=== PATIENT | female | born 2000 | race Caucasian/White ===

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

== ENCOUNTER 2025-05-26 15:16 | Emergency (ER) | payer OTHER, SELFPAY ==
--- NOTE | ~2025-05-26 | CT_ITS ---
EXAMINATION: CT BRAIN W/O DATE: 05/26/2025 17:15 INDICATION: Headache. Visual changes. TECHNIQUE: Computed tomography (CT) of the head was performed without intravenous contrast. The dose-length product was 529.67 mGy-cm. Automated exposure control and iterative reconstruction technique were employed. COMPARISON: No prior studies for comparison. FINDINGS: Normal brain parenchymal volume for age. Normal saleh-white differentiation. No acute intracranial hemorrhage, infarction, mass or mass effect. No ventriculomegaly or midline shift. Midline sagittal images demonstrate a normal corpus callosum, craniovertebral junction and sella turcica. Basilar cisterns are patent. Paranasal sinuses and mastoids are pneumatized. No depressed skull fractures. IMPRESSION: 1. No acute intracranial abnormality. Reviewed, dictated and finalized at location O. TEACHER
[2025-05-26 15:21] VITALS: BP 118/62; PULSE 62; RESP 18; TEMP 36.3; O2SAT 99
--- NOTE | 2025-05-26 15:25 | PC.NURSE ---
EDP Dr. García made aware of pt arrival, sx, & onset. No new orders at this time.
--- OUTSIDE RECORDS SUMMARY | 2025-05-26 15:52 | XMS_ITS | Clinical Summary ---
Author Organization [address] Address [address] [place] [id number] Care Team Providers Care Mycology Teacher Name Role Phone Calista Tatum DO Primary Care Provider Allergies No known active allergies Medications segesterone ac-ethin estradioL ([place]) 0.15-0.013 mg/24 hour ringIndications :Menstrual suppression Insert 1 Ring into the vagina continuously 1 each 5 09/20/19 26 Active Active Problems Problem Noted Date Diagnosed Date Excessive and frequent menstruation with regular cycle 09/19/2024 Overview (09/19/2024): Patient presents with longstanding history of abnormal uterine bleeding and dysmenorrhea with regular menses. Recent ultrasound imaging notable for a normal-sized uterus and ovaries with endometrial stripe of 1.4-1.9 cm. Discussed causes of abnormal uterine bleeding, including structural, hormonal, iatrogenic, and endometrial issues, with patient's current bleeding most likely due to structural causes given increased volume of bleeding over the past 2 years and intermenstrual bleeding. Discussed management with menstrual suppression with various modalities such as pills, injectables, implants, and LARCs. Following discussion of options and patient's desire to conceive in the short term, opted for continuous use of vaginal ring. Given periods are regular with varying onset timing, we will send hormonal workup for contributing factors. Endometrial stripe on recent ultrasound likely due to proliferative endometrium, but could be a sign of intracavitary things like polyps/fibroids, so we will perform SIS to evaluate. Additionally we will send CBC and iron studies given prolonged heavy bleeding to assess for degree of anemia. Of note, anticipate need for fertility evaluation following management of AUB. Medical History Medical History Date Comments Asthma Heart murmur Social History Tobacco Use Types Packs/Day Years Used Date Smoking Tobacco: Never Smokeless Tobacco: Never Tobacco Cessation:Counseling Given: No Hunger Vital Sign Answer Date Recorded Within the past 12 months, y ou worried that your food would run out before you got the money to buy more. Never true 09/20/19 25 Within the past 12 months, t he food you bought just didn't last and you didn't have money to get more. 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 Gender Identity Not on file Sexual Orientation Not on file Last Filed Vital Signs Vital Sign Reading Time Taken Comments Blood Pressure 108/60 09/19/2024 9:03 AM CDT Pulse 64 09/19/2024 9:03 AM CDT Temperature 37.1 C (98.7 F) 03/20/2017 7:15 PM CDT Respiratory Rate 18 09/19/2024 9:03 AM CDT Oxygen Saturation 97% 09/19/2024 9:03 AM CDT Inhaled Oxygen Concentration - - Weight 100.7 kg (222 lb) 09/19/2024 9:03 AM CDT Height 160 cm (5' 3) 09/19/2024 9:03 AM CDT Body Mass Index 39.33 09/19/2024 9:03 AM CDT Plan of Treatment Health Maintenance Due Date Last Done Comments Cervical Cancer Screening 2002 Depression Screening 2002 Hepatitis C Screening 2002 Meningococcal B Vaccine (1 of 2 - Standard) 2018 Regular Well Visit/Exam 18-64 2020 DTaP/Tdap/Td Vaccine (7 - Td or Tdap) 03/25/2024 03/25/2014, 01/15/2008, 10/30/2003, Additional history exists Covid-19 Vaccine ( season) 2025 12/02/2020, 11/04/2020 Influenza Vaccine (#1) 2025 03/21/2016, 2013 Hepatitis B Screening Completed 2002 , 2002, 2002, Additional history exists Pneumococcal vaccine <65 Aged Out 003, 2002, 2002 No longer eligible based on patient's age to complete this topic Varicella Vaccines Completed 01/15/2008, 07/15/2003 HPV Vaccines Completed 03/21/2016, 03/25/2014 Insurance Member Subscriber Plan / Payer (Ef fective 2023-Present) Name:Jes Villagran Relation to Subscriber:Self Name:AldairUzma nunesmolina Mccall Payer ID:[id number] (NAIC) Group ID:Not on file Type:MEDICAID RISK OTHER Address: ATTN: CLAIMS DEPT [address] [facility] [place] [phone] Care Teams Mycology Teacher Relationship Specialty Start Date End Date Calista Tatum DO PCP - General Family Medicine 01/18/24
[2025-05-26 16:25] VITALS: BP 123/68; PULSE 70; RESP 20; O2SAT 100
[2025-05-26] MEDS: LACTATED RINGERS 1,000 ML 999 ML IV CONT (16:40)
[2025-05-26] MEDS: METOCLOPRAMIDE HCL INJ 10 MG/2 ML VIAL IV PUSH (16:40)
--- NOTE | 2025-05-26 17:00 | ED_ITS ---
HPI - Headache General Chief Complaint: Headache Stated Complaint: headache Time Seen by Provider: 05/26/25 15:33 Source: patient Mode of arrival: ambulatory Limitations: no limitations History of Present Illness HPI Narrative: This is a 25 year old female that presents to the ER for headache. She is currently 9 weeks . Reports earlier today she had an episode of blurred vision photophobia, with headache following. Reports some nausea. History of headaches, but not usually quite this bad. She is currently 9 weeks . Related Data Home Medications ?Medication ?Instructions ?Recorded ?Confirmed ?Last Taken ?Type ergocalciferol (vitamin D2) 1,250 PO 05/13/25 05/13/25 Unknown History mcg (50,000 unit) capsule vits no.126-ferrous fum tablet PO 05/13/25 Unknown History 28 mg iron-folic acid 800 mcg tablet (Classic ) sertraline 100 mg tablet 100 mg PO 05/13/25 05/13/25 Unknown History Allergies Allergy/AdvReac Type Severity Reaction Status Date / Time azithromycin Allergy Mild Rash Verified 05/26/25 15:26 Review of Systems 2 Review of Systems: All systems reviewed & are unremarkable except as noted in HPI and below PMFSH Past Medical History Medical History (Updated 05/26/25 @ 18:56 by Elizabeth Posadas PA-C) Anxiety Anemia Social History Social History (Updated 05/13/25 @ 08:22 by Laury Kunz [facility]) Smoking status: Current every day smoker Lack of Transportation: YES Concerned About Future Housing: No Difficulty Paying Gas/Electric Bills: No Difficulty Paying for Meds: No Currently Unemployed: No Sexual Orientation (if Verbalized by the Patient): Straight or Heterosexual Exam 2 Narrative: GENERAL: Well-appearing, well-nourished, and in no acute distress. HEAD: Normocephalic, atraumatic. EYES: PERRLA and EOMI. ENT: Nares clear, no rhinorrhea or epistaxis. Mucous membranes moist. Oropharynx without tonsillar hypertrophy exudate or other lesions. Bilateral TMs pearly saleh non-bulging NECK: Supple. No adenopathy or masses. CHEST: Clear to auscultation. No respiratory distress. No wheezes rales or rhonchi HEART: Regular rate and rhythm. No murmur heard. Normal peripheral pulses. EXTREMITIES: Normal range of motion. No edema. SKIN: Warm, dry, no rash. NEURO: No focal deficits. Alert and oriented x3. Cranial nerves 2-12 grossly intact PSYCH: Normal mood and affect Course Vital Signs Vital signs: Vital Signs Temperature 97.4 F L 05/26/25 15:21 Pulse Rate 62 05/26/25 15:21 Respiratory Rate 18 05/26/25 15:21 Blood Pressure 118/62 05/26/25 15:21 Pulse Oximetry 99 05/26/25 15:21 Oxygen Delivery Room Air 05/26/25 15:21 Temperature 97.4 F L 05/26/25 15:21 Pulse Rate 80 05/26/25 18:47 Respiratory Rate 20 05/26/25 18:47 Blood Pressure 114/64 05/26/25 18:47 Pulse Oximetry 100 05/26/25 18:47 Oxygen Delivery Room Air 05/26/25 15:21 [facility] Narrative Medical decision making narrative: Patient presents to the emergency department for a headache today with episode of blurred vision. Her vitals are stable. She is afebrile and nontoxic appearing. She is neurologically intact. CBC and metabolic panel without concerning findings. CT brain is normal. Relief after migraine cocktail. Instructed to have continued follow-up with her OB Differential Diagnosis Differential Diagnosis: Headache, migraine, tension headache Lab Data [facility] Lab Attestation statement: I personally reviewed the patient's lab results. 05/26/25 15:32 05/26/25 15:32 Labs: Lab Results 05/26/25 05/26/25 05/26/25 Range/Units 15:26 15:32 15:32 WBC 9.4 (4.5-10.0) K/mm3 RBC 3.66 L (4.2-5.4) M/mm3 Hgb 10.5 L (12.0-15.0) g/dL Hct 32.3 L (37.0-47.0) % MCV 88.3 (80-100) fl MCH 28.7 (26-34) pg MCHC 32.5 (32-36) g/dl RDW 14.7 H (11.5-14.5) % Plt Count 300 (150-375) k/mm3 MPV 11.0 H (7.4-10.4) fl Immature Gran % (Auto) 0.3 (0-0.5) % Neut % (Auto) 71.8 (45.5-73.1) % Lymph % (Auto) 19.4 (18.3-44.2) % [place] % (Auto) 5.2 (2.6-8.5) % Eos % (Auto) 2.9 (0-4.4) % Baso % (Auto) 0.4 (0.2-1.2) % Lymph # (Auto) 1.82 (0.9-3.2) K/mm3 [place] # (Auto) 0.5 (0.1-0.6) K/mm3 Eos # (Auto) 0.3 (0-0.3) K/mm3 Baso # (Auto) 0.0 (0.0-0.1) K/mm3 Abs Immat Gran (auto) 0.03 (0.00-0.031) K/mm3 Absolute Neuts (auto) 6.7 (1.3-6.7) K/mm3 Absolute Nucleated RBC 0.000 (0.0-0.012) K/mm3 Nucleated RBC % 0.0 (0.0-0.2) % Sodium 137 Cancelled (137-145) mmol/L Potassium 3.9 (3.4-5.0) mmol/L Chloride (98-107) mmol/L Carbon Dioxide (22-30) mmol/L Anion Gap (4-12) mmol/L BUN (7-17) mg/dL Creatinine (0.7-1.0) mg/dL Estim Creat Clear Calc ml/min Estimated GFR (59 - ) Glucose (65-110) mg/dL POC Capillary Glucose 96 (65-105) mg/dl Calcium (8.4-10.2) mg/dL Total Bilirubin (0.2-1.3) mg/dL AST (14-36) U/L ALT (6-35) U/L Alkaline Phosphatase (38-126) U/L Total Protein (6.3-8.2) g/dL Albumin (3.5-5.1) g/dL Beta HCG, Quant mIU/ML 05/26/25 05/26/25 05/26/25 Range/Units 15:32 15:32 15:32 WBC (4.5-10.0) K/mm3 RBC (4.2-5.4) M/mm3 Hgb (12.0-15.0) g/dL Hct (37.0-47.0) % MCV (80-100) fl MCH (26-34) pg MCHC (32-36) g/dl RDW (11.5-14.5) % Plt Count (150-375) k/mm3 MPV (7.4-10.4) fl Immature Gran % (Auto) (0-0.5) % Neut % (Auto) (45.5-73.1) % Lymph % (Auto) (18.3-44.2) % [place] % (Auto) (2.6-8.5) % Eos % (Auto) (0-4.4) % Baso % (Auto) (0.2-1.2) % Lymph # (Auto) (0.9-3.2) K/mm3 [place] # (Auto) (0.1-0.6) K/mm3 Eos # (Auto) (0-0.3) K/mm3 Baso # (Auto) (0.0-0.1) K/mm3 Abs Immat Gran (auto) (0.00-0.031) K/mm3 Absolute Neuts (auto) (1.3-6.7) K/mm3 Absolute Nucleated RBC (0.0-0.012) K/mm3 Nucleated RBC % (0.0-0.2) % Sodium (137-145) mmol/L Potassium Cancelled (3.4-5.0) mmol/L Chloride 107 Cancelled (98-107) mmol/L Carbon Dioxide 21 L Cancelled (22-30) mmol/L Anion Gap 9 (4-12) mmol/L BUN (7-17) mg/dL Creatinine (0.7-1.0) mg/dL Estim Creat Clear Calc ml/min Estimated GFR (59 - ) Glucose (65-110) mg/dL POC Capillary Glucose (65-105) mg/dl Calcium (8.4-10.2) mg/dL Total Bilirubin (0.2-1.3) mg/dL AST (14-36) U/L ALT (6-35) U/L Alkaline Phosphatase (38-126) U/L Total Protein (6.3-8.2) g/dL Albumin (3.5-5.1) g/dL Beta HCG, Quant mIU/ML 05/26/25 05/26/25 05/26/25 Range/Units 15:32 15:32 15:32 WBC (4.5-10.0) K/mm3 RBC (4.2-5.4) M/mm3 Hgb (12.0-15.0) g/dL Hct (37.0-47.0) % MCV (80-100) fl MCH (26-34) pg MCHC (32-36) g/dl RDW (11.5-14.5) % Plt Count (150-375) k/mm3 MPV (7.4-10.4) fl Immature Gran % (Auto) (0-0.5) % Neut % (Auto) (45.5-73.1) % Lymph % (Auto) (18.3-44.2) % [place] % (Auto) (2.6-8.5) % Eos % (Auto) (0-4.4) % Baso % (Auto) (0.2-1.2) % Lymph # (Auto) (0.9-3.2) K/mm3 [place] # (Auto) (0.1-0.6) K/mm3 Eos # (Auto) (0-0.3) K/mm3 Baso # (Auto) (0.0-0.1) K/mm3 Abs Immat Gran (auto) (0.00-0.031) K/mm3 Absolute Neuts (auto) (1.3-6.7) K/mm3 Absolute Nucleated RBC (0.0-0.012) K/mm3 Nucleated RBC % (0.0-0.2) % Sodium (137-145) mmol/L Potassium (3.4-5.0) mmol/L Chloride (98-107) mmol/L Carbon Dioxide (22-30) mmol/L Anion Gap Cancelled (4-12) mmol/L BUN 7 Cancelled (7-17) mg/dL Creatinine 0.53 L Cancelled (0.7-1.0) mg/dL Estim Creat Clear Calc 147 ml/min Estimated GFR (59 - ) Glucose (65-110) mg/dL POC Capillary Glucose (65-105) mg/dl Calcium (8.4-10.2) mg/dL Total Bilirubin (0.2-1.3) mg/dL AST (14-36) U/L ALT (6-35) U/L Alkaline Phosphatase (38-126) U/L Total Protein (6.3-8.2) g/dL Albumin (3.5-5.1) g/dL Beta HCG, Quant mIU/ML 05/26/25 05/26/25 05/26/25 Range/Units 15:32 15:32 15:32 WBC (4.5-10.0) K/mm3 RBC (4.2-5.4) M/mm3 Hgb (12.0-15.0) g/dL Hct (37.0-47.0) % MCV (80-100) fl MCH (26-34) pg MCHC (32-36) g/dl RDW (11.5-14.5) % Plt Count (150-375) k/mm3 MPV (7.4-10.4) fl Immature Gran % (Auto) (0-0.5) % Neut % (Auto) (45.5-73.1) % Lymph % (Auto) (18.3-44.2) % [place] % (Auto) (2.6-8.5) % Eos % (Auto) (0-4.4) % Baso % (Auto) (0.2-1.2) % Lymph # (Auto) (0.9-3.2) K/mm3 [place] # (Auto) (0.1-0.6) K/mm3 Eos # (Auto) (0-0.3) K/mm3 Baso # (Auto) (0.0-0.1) K/mm3 Abs Immat Gran (auto) (0.00-0.031) K/mm3 Absolute Neuts (auto) (1.3-6.7) K/mm3 Absolute Nucleated RBC (0.0-0.012) K/mm3 Nucleated RBC % (0.0-0.2) % Sodium (137-145) mmol/L Potassium (3.4-5.0) mmol/L Chloride (98-107) mmol/L Carbon Dioxide (22-30) mmol/L Anion Gap (4-12) mmol/L BUN (7-17) mg/dL Creatinine (0.7-1.0) mg/dL Estim Creat Clear Calc Cancelled ml/min Estimated GFR > 60 Cancelled (59 - ) Glucose 86 Cancelled (65-110) mg/dL POC Capillary Glucose (65-105) mg/dl Calcium 9.6 (8.4-10.2) mg/dL Total Bilirubin (0.2-1.3) mg/dL AST (14-36) U/L ALT (6-35) U/L Alkaline Phosphatase (38-126) U/L Total Protein (6.3-8.2) g/dL Albumin (3.5-5.1) g/dL Beta HCG, Quant mIU/ML 05/26/25 05/26/25 05/26/25 Range/Units 15:32 15:32 15:32 WBC (4.5-10.0) K/mm3 RBC (4.2-5.4) M/mm3 Hgb (12.0-15.0) g/dL Hct (37.0-47.0) % MCV (80-100) fl MCH (26-34) pg MCHC (32-36) g/dl RDW (11.5-14.5) % Plt Count (150-375) k/mm3 MPV (7.4-10.4) fl Immature Gran % (Auto) (0-0.5) % Neut % (Auto) (45.5-73.1) % Lymph % (Auto) (18.3-44.2) % [place] % (Auto) (2.6-8.5) % Eos % (Auto) (0-4.4) % Baso % (Auto) (0.2-1.2) % Lymph # (Auto) (0.9-3.2) K/mm3 [place] # (Auto) (0.1-0.6) K/mm3 Eos # (Auto) (0-0.3) K/mm3 Baso # (Auto) (0.0-0.1) K/mm3 Abs Immat Gran (auto) (0.00-0.031) K/mm3 Absolute Neuts (auto) (1.3-6.7) K/mm3 Absolute Nucleated RBC (0.0-0.012) K/mm3 Nucleated RBC % (0.0-0.2) % Sodium (137-145) mmol/L Potassium (3.4-5.0) mmol/L Chloride (98-107) mmol/L Carbon Dioxide (22-30) mmol/L Anion Gap (4-12) mmol/L BUN (7-17) mg/dL Creatinine (0.7-1.0) mg/dL Estim Creat Clear Calc ml/min Estimated GFR (59 - ) Glucose (65-110) mg/dL POC Capillary Glucose (65-105) mg/dl Calcium Cancelled (8.4-10.2) mg/dL Total Bilirubin 0.4 Cancelled (0.2-1.3) mg/dL AST 21 Cancelled (14-36) U/L ALT 11 (6-35) U/L Alkaline Phosphatase (38-126) U/L Total Protein (6.3-8.2) g/dL Albumin (3.5-5.1) g/dL Beta HCG, Quant mIU/ML 05/26/25 05/26/25 05/26/25 Range/Units 15:32 15:32 15:32 WBC (4.5-10.0) K/mm3 RBC (4.2-5.4) M/mm3 Hgb (12.0-15.0) g/dL Hct (37.0-47.0) % MCV (80-100) fl MCH (26-34) pg MCHC (32-36) g/dl RDW (11.5-14.5) % Plt Count (150-375) k/mm3 MPV (7.4-10.4) fl Immature Gran % (Auto) (0-0.5) % Neut % (Auto) (45.5-73.1) % Lymph % (Auto) (18.3-44.2) % [place] % (Auto) (2.6-8.5) % Eos % (Auto) (0-4.4) % Baso % (Auto) (0.2-1.2) % Lymph # (Auto) (0.9-3.2) K/mm3 [place] # (Auto) (0.1-0.6) K/mm3 Eos # (Auto) (0-0.3) K/mm3 Baso # (Auto) (0.0-0.1) K/mm3 Abs Immat Gran (auto) (0.00-0.031) K/mm3 Absolute Neuts (auto) (1.3-6.7) K/mm3 Absolute Nucleated RBC (0.0-0.012) K/mm3 Nucleated RBC % (0.0-0.2) % Sodium (137-145) mmol/L Potassium (3.4-5.0) mmol/L Chloride (98-107) mmol/L Carbon Dioxide (22-30) mmol/L Anion Gap (4-12) mmol/L BUN (7-17) mg/dL Creatinine (0.7-1.0) mg/dL Estim Creat Clear Calc ml/min Estimated GFR (59 - ) Glucose (65-110) mg/dL POC Capillary Glucose (65-105) mg/dl Calcium (8.4-10.2) mg/dL Total Bilirubin (0.2-1.3) mg/dL AST (14-36) U/L ALT Cancelled (6-35) U/L Alkaline Phosphatase 65 Cancelled (38-126) U/L Total Protein 7.4 Cancelled (6.3-8.2) g/dL Albumin 4.1 (3.5-5.1) g/dL Beta HCG, Quant mIU/ML 05/26/ Range/Units 15:32 WBC (4.5-10.0) K/mm3 RBC (4.2-5.4) M/mm3 Hgb (12.0-15.0) g/dL Hct (37.0-47.0) % MCV (80-100) fl MCH (26-34) pg MCHC (32-36) g/dl RDW (11.5-14.5) % Plt Count (150-375) k/mm3 MPV (7.4-10.4) fl Immature Gran % (Auto) (0-0.5) % Neut % (Auto) (45.5-73.1) % Lymph % (Auto) (18.3-44.2) % [place] % (Auto) (2.6-8.5) % Eos % (Auto) (0-4.4) % Baso % (Auto) (0.2-1.2) % Lymph # (Auto) (0.9-3.2) K/mm3 [place] # (Auto) (0.1-0.6) K/mm3 Eos # (Auto) (0-0.3) K/mm3 Baso # (Auto) (0.0-0.1) K/mm3 Abs Immat Gran (auto) (0.00-0.031) K/mm3 Absolute Neuts (auto) (1.3-6.7) K/mm3 Absolute Nucleated RBC (0.0-0.012) K/mm3 Nucleated RBC % (0.0-0.2) % Sodium (137-145) mmol/L Potassium (3.4-5.0) mmol/L Chloride (98-107) mmol/L Carbon Dioxide (22-30) mmol/L Anion Gap (4-12) mmol/L BUN (7-17) mg/dL Creatinine (0.7-1.0) mg/dL Estim Creat Clear Calc ml/min Estimated GFR (59 - ) Glucose (65-110) mg/dL POC Capillary Glucose (65-105) mg/dl Calcium (8.4-10.2) mg/dL Total Bilirubin (0.2-1.3) mg/dL AST (14-36) U/L ALT (6-35) U/L Alkaline Phosphatase (38-126) U/L Total Protein (6.3-8.2) g/dL Albumin Cancelled (3.5-5.1) g/dL Beta HCG, Quant 571198.00 mIU/ML Imaging Data Radiologist's impression: ITS Impressions Head CT 05/26/25 17:24 IMPRESSION: 1. No acute intracranial abnormality. Critical Care Time Critical Care Time Critical Care Time: No Discharge Plan Discharge Clinical Impression: Headache Qualifiers: Headache type: unspecified Headache chronicity pattern: acute headache I ntractability: not intractable Qualified Code(s): R51.9 - Headache, unspecified Patient Disposition: Home Condition: Improved Instructions: Acute Headache (ED) Additional Instructions: Return to the ER if you experience fever, chest pain, shortness of breath, abdominal pain with nausea and vomiting, you are unable to keep down liquids or solids, pelvic cramping, vaginal bleeding, weakness, numbness, or any other symptoms that are concerning to you Remain well hydrated. Tylenol as needed for pain Follow up with your OB Patient Language: Nicar[place] Prescriptions: No Action sertraline 100 mg tablet 100 mg PO ergocalciferol (vitamin D2) 1,250 mcg (50,000 unit) capsule PO Classic 28 mg iron- 800 mcg tablet PO metoclopramide HCl 10 mg tablet 10 mg PO Q6H PRN (Reason: nausea and vomiting) Qty: 30 3RF Follow-up/Referrals: PHYSICIAN NOT ON STAFF,NONSTAFF [Primary Care Provider]
[2025-05-26 17:49] LABS: Alanine Aminotransferase 11 U/L (6-35); Albumin Level 4.1 g/dL (3.5-5.1); Alkaline Phosphatase 65 U/L (38-126); Anion Gap 9 mmol/L (4-12); Aspartate Amino Transferase 21 U/L (14-36); Bilirubin,Total 0.4 mg/dL (0.2-1.3); Blood Urea Nitrogen 7 mg/dL (7-17); Calcium 9.6 mg/dL (8.4-10.2); Carbon Dioxide 21 mmol/L (22-30); Chloride 107 mmol/L (98-107); Estimated CRCL calculation 147 ml/min; Estimated Glomerular Filt Rate > 60; Glucose 86 mg/dL (65-110); Potassium 3.9 mmol/L (3.4-5.0); Sodium 137 mmol/L (137-145); Total Protein 7.4 g/dL (6.3-8.2)
[2025-05-26 17:50] LABS: Hematocrit 32.3 % (37.0-47.0); Hemoglobin 10.5 g/dL (12.0-15.0); Immature Granulocyte Percent A 0.3 % (0-0.5); Lymphocytes Absolute Auto 1.82 K/mm3 (0.9-3.2); Mean Corpuscular HGB Conc 32.5 g/dl (32-36); Mean Corpuscular Hemoglobin 28.7 pg (26-34); Mean Corpuscular Volume 88.3 fl (80-100); Nucleated Red Blood Cells Absolute Auto 0.000 K/mm3 (0.0-0.012); Nucleated Red Blood Cells Perc 0.0 % (0.0-0.2); Platelet Count Result 300 k/mm3 (150-375); Red Blood Count 3.66 M/mm3 (4.2-5.4); White Blood Count 9.4 K/mm3 (4.5-10.0)
[2025-05-26 17:56] VITALS: BP 111/62; PULSE 69; RESP 16; O2SAT 98
--- NOTE | 2025-05-26 17:57 | PC.NURSE ---
Fluid bolus still infusing. Pt. educated to keep her arm straight.
[2025-05-26] MEDS: ACETAMINOPHEN 500 MG TABLET 1000 MG PO (18:45)
[2025-05-26 18:47] VITALS: BP 114/64; PULSE 80; RESP 20; O2SAT 100
== END 2025-05-26 19:04 | disposition home or self-care (01) ==
PROVIDERS: Emergency Provider Physician Assistant
DX: O26.891 Other specified pregnancy related conditions, first trimester (principal); R51.9 Headache, unspecified; O99.331 Smoking (tobacco) complicating pregnancy, first trimester; O99.341 Other mental disorders complicating pregnancy, first trimester; F41.9 Anxiety disorder, unspecified; F17.200 Nicotine dependence, unspecified, uncomplicated; Z86.2 Personal history of diseases of the blood and blood-forming organs and certain disorders involving the immune mechanism; Z3A.09 9 weeks gestation of pregnancy; Z79.899 Other long term (current) drug therapy
CPT/HCPCS: 36415; 70450; 80053; 82948; 84702; 85025; 96361; 96374; 96375; 99284; A9270; J1200; J2765; J7120